=== PATIENT | female | born 1985 | race Caucasian/White ===

== ENCOUNTER 2016-11-15 21:19 | Emergency (ER) | payer BC, OTHER ==
[2016-11-15 18:19] LABS: BASOPHILS 0.2 %; BASOPHILS ABSOLUTE 0.02 10/3/uL (0.0-0.16); EOSINOPHILS 1.7 %; EOSINOPHILS ABSOLUTE 0.17 10/3/uL (0.0-0.53); ER CBC TAT 0 Hrs 05 Mins; HEMATOCRIT 41.1 % (36.0-48.0); HEMOGLOBIN 13.6 g/dL (12.0-16.0); IMMATURE GRANULOCYTES 0.2 %; IMMATURE GRANULOCYTES ABSOLUTE 0.02 10/3/uL (0.0-0.11); LYMPHOCYTES 21.8 %; LYMPHOCYTES ABSOLUTE 2.21 10/3/uL (0.67-4.30); MANUAL DIFF NO %; MEAN CORPUS HGB CONC 33.1 g/dL (32.0-36.0); MEAN CORPUSCULAR HEMOGLOB 29.2 pg (26.0-34.0); MEAN CORPUSCULAR VOLUME 88.2 fL (80-100); MEAN PLATELET VOLUME 10.7 fL (9.2-13.0); MONOCYTES 3.7 %; MONOCYTES ABSOLUTE 0.37 10/3/uL (0.21-1.20); NEUTROPHILS 72.4 %; NEUTROPHILS ABSOLUTE 7.33 10/3/uL (2.02-8.40); PLATELET COUNT 162 10/3/uL (150-400); RBC DISTRIBUTION WIDTH 13.7 % (12.0-16.0); RED CELL COUNT 4.66 10/6/uL (4.0-5.6); WHITE BLOOD CELLS 10.1 10/3/uL (4.5-10.5)
[2016-11-15 18:26] LABS: INTERNATIONAL NORMAL RATI 1.2 UNITS (-); PARTIAL THROMBO TIME 30.8 SEC (22.5-37.2); PROTIME (NOT ORD) 14.9 SEC (12.0-14.5)
[2016-11-15 18:40] LABS: BUN (BLOOD UREA NITROGEN) 13 MG/DL (6-23); CALCIUM, SERUM 8.7 MG/DL (8.5-10.4); CHEST PAIN PROFILE TAT 0 Hrs 26 Mins; CHLORIDE, SERUM 111 MMOL/L (96-112); CO2 (CARBON DIOXIDE) 24 MMOL/L (24-34); GFR AFRICAN AMERICAN 86 ML/MIN (>=60); GFR NON AFRICAN AMERICAN 74 ML/MIN (>=60); GLUCOSE, SERUM 125 MG/DL (60-99); POTASSIUM, SERUM 3.4 MMOL/L (3.5-5.3); SODIUM, SERUM 142 MMOL/L (135-148); TROPONIN I <0.02 NG/ML (<0.05)
[2016-11-15 19:47] LABS: ASCORBIC ACID (UR NOT ORDER) NEG (NEG); BILIRUBIN, URINE NEGATIVE (NEG); ER URINALYSIS TAT 0 Hrs 08 Mins; KETONE, URINE NEGATIVE (NEG); LEUKOCYTE ESTERASE(NOT OR LARGE (NEG); NITRITE (URINE) NEG (NEG); WBC (NOT ORDERED) (RFLEX) 132 (0-5)
[2016-11-15 20:37] LABS: ALBUMIN 3.3 G/DL (3.5-5.0); ALKALINE PHOSPHATASE 117 U/L (45-117); SGOT(AST) 9 U/L (5-40); SGPT(ALT) 18 U/L (5-65); TOTAL BILIRUBIN 0.4 MG/DL (0-1.2); TOTAL PROTEIN 6.8 G/DL (6.0-8.5); ULTRASENSITIVE TSH 0.576 MCIU/ML (0.358-3.740)
[2016-11-15 20:40] LABS: DIRECT BILIRUBIN < 0.1 MG/DL (0.0-0.4); INDIRECT BILIRUBIN(NOT ORDER) 0.3 MG/DL (0.1-0.9)
[~2016-11-15 21:19] MED LIST: CELEXA20 PO; DITRO5 PO; GEODON80 PO; KLONO1 PO; PRISTIQ100 MG PO; PRISTIQ50 MG PO; TOPAMAX200 MG PO; TRILEP300 PO; YAZ1 TAB PO; ZONEGRAN PO
== END 2016-11-15 21:48 | disposition home or self-care (01) ==
LOC: ER 21:19
PROVIDERS: Emergency Medicine; Nurse Practitioner
DX: N39.0 Urinary tract infection, site not specified (principal); E87.6 Hypokalemia; G89.29 Other chronic pain; Z88.6 Allergy status to analgesic agent; Z88.8 Allergy status to other drugs, medicaments and biological substances; Z79.899 Other long term (current) drug therapy
CPT/HCPCS: 71020; 80048; 80076; 81001; 83690; 83735; 83880; 84443; 84484; 84703; 85025; 85610; 85730; 87077; 87086; 87186; 93005; 96372; 99285; A9270-GY

== ENCOUNTER 2016-11-20 20:23 | Inpatient (IN) | payer BC, OTHER ==
--- NOTE | ~2016-11-20 | HP ---
History And Physical [place] [id number] [facility] [place]. [address] NAME: FIORDALIZA CALDERON : 83 STATUS : ADM IN PAT#: [id number] AGE: 31 ADM/REG DATE : 11/20/16 MR#: [id number] REPORT SERV DATE: 11/21/16 DICTATED BY: CARIE POSEY DATE: 11/20/16 REPORT STATUS : Draft TRANSCRIBED BY: MODL DATE: 11/20/16 DATE OF ADMISSION: 11/20/2016 IDENTIFYING DATA: A 31-year-old white female, patient of Dr. Tracy Ang; neurologist, Dr. Boogie; psychiatrist, Dr. Carie Steel. CHIEF COMPLAINT: Nausea, vomiting, passing out, and diarrhea. HISTORY OF PRESENT ILLNESS: This history of present illness is obtained by talking directly with the patient as well as reviewing [employer] and [employer] and also talking on the phone with her physician, Dr. Tracy Ang. The patient states she has had a month of nausea and vomiting. She states it happens at least every day. There is no red color in it, no black color in it. She also states she has had for the entire month diarrhea, that it comes primarily after meals, that is watery. There is no red or black color in the diarrhea. She states she has felt a little bit of red on her toilet paper once. She complains of generalized weakness. She also complains of fainting. She states she fainted several weeks ago, but then goes on to state that she was fully awake the whole time, so she then clarifies to state that she thinks she just was weak. She states that she has been to emergency rooms three times in the last week, once to [facility]. She only tells me they did not treat her very nicely and they gave her some Phenergan. She was here on 11/15/2016, and at that time, had a negative urine test and had chemistry profile that revealed alkaline phosphatase of 134, albumin of 3.3, but her alkaline phosphatase has been elevated somewhat in the past. Her lipase was normal at that time. CBC was normal at that time. Urinalysis was obtained, unfortunately, it was not a clean catch, it had 47 squamous epithelium, so the results of it were invalid; however, the ER reacted to the Marta hansen, and they had sent her home with some Ceftin and they called to tell her that she needed to switch over to Bactrim, which she did. She tells me she did not have dysuria or frequency. She did have some yeast vaginitis symptoms. She also was given some Diflucan at that time. She states she continued to have nausea and vomiting, so she went back to the emergency room and it appears that that was on 11/17/2016 with complaints of the similar abnormalities as well as abdominal pain. She then had a CT scan of the abdomen and pelvis, which was read by Radiology as being unremarkable. She, at that same time, had repeat comprehensive metabolic profile, and once again it was only remarkable for alkaline phosphatase elevation that was mild and albumin that was mildly low. Blood sugar has been mildly elevated in the 120s. She reports that she was at home early this morning, went to the kitchen, felt nauseated, felt lightheaded, and then passed out. She states that her mom heard her faint or hit the floor. They stated that she was out maybe 2 or 3 minutes, no seizure-like activity. The patient specifically states that the mother told her that they did not see any seizure-like activity. They checked her sugar, they checked her blood pressure, they were okay. She apparently awoke, was clear mentally. The report from the PCP was that the family called her and requested a direct admission for further evaluation and then the PCP called us to try to facilitate that. History And Physical [address] [place]. [address] NAME: FIORDALIZA CALDERON : [birth year] STATUS : ADM IN [facility]#: [id number] AGE: 31 ADM/REG DATE : 11/20/16 MR#: [id number] REPORT SERV DATE: 11/21/16 DICTATED BY: CARIE POSEY DATE: 11/20/16 REPORT STATUS : Draft TRANSCRIBED BY: MODLeyda DATE: 11/20/16 The patient states that she takes two Aleve every day for generalized body aches. She sometimes takes up to three. She has been doing that for longer than this last month. She has complained of abdominal pain. She localizes it in the entire mid abdomen, it is crampy in nature, intermittent. REVIEW OF SYSTEMS: On review of systems, she states she has been weak. She states she had a fever yesterday up to 101. She states Nexium gave her some chest pain recently, she quit it and she has not had any chest pain since that time. On the ER visit 11/15/2016, they did do a chest x-ray that was unremarkable other than for shallow inspiratory size. EKG done by the emergency room on 11/15/2016 at 1748 hours had revealed normal sinus rhythm, some very minimal ST- and T-wave abnormalities; otherwise, unremarkable. She denies sore throat, cough, melena, or rash. ALLERGIES: SHE CLAIMS ALLERGIES OR INTOLERANCE TO PHENYTOIN, TEGRETOL, ASPIRIN, AND ZOFRAN. PAST MEDICAL HISTORY: She denies any history of diabetes, heart disease, stroke, peptic ulcer or liver disease, chronic kidney disease or cancer. She has had epilepsy since age 9. She has a vagal nerve stimulator. Only change in her multiple seizure medicines was her Klonopin, was reduced in half about a month and a half ago. She has obstructive sleep apnea for which she wears CPAP. She has a chart history of hyperthyroidism, but I could not find anything to corroborate that. On 11/15/2016, her TSH was normal at 0.576. She states she had childhood asthma. She has a history of depression and anxiety and psychosis with hallucinations for which she sees Psychiatry and is on Geodon. She has morbid obesity. She used to have migraine headaches. HOME MEDICATIONS: BuSpar 15 mg b.i.d.; Klonopin 0.5 mg b.i.d.; Diflucan 150 mg was given to her the other day after the ER visit; Aleve [id number] two or three a day; Trileptal 1200 mg b.i.d.; Ditropan XL 5 mg daily; Pyridium 200 mg twice a day p.r.n. urinary discomfort, started by the ER; Phenergan 25 mg b.i.d., reportedly started by [facility]; Topamax 200 mg b.i.d.; Bactrim DS p.o. b.i.d. started 11/18/2016 by ER; Geodon 160 mg at bedtime; and Zonegran 200 mg at bedtime. PAST SURGICAL HISTORY: She has had a vagus nerve stimulator in 2004 and in 2010, and in 2015, she had a generator change. 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 She has had , benign right cheek tumor removed back in the s, tonsillectomy, and cholecystectomy. SOCIAL HISTORY: She denies use of tobacco. She states she drinks alcohol socially. She used to work as a sales associate cashier, but she states she quit because of the current nausea, vomiting, and diarrhea problems. She lives with her parents. FAMILY HISTORY: Mother reportedly is healthy. Father with sleep apnea, diabetes, and had a kidney transplant. Siblings with kidney stone problems. DIAGNOSTIC DATA: The most recent chemistries were on 11/17/2016 sodium 143, potassium 3.3, History And Physical [address] [address] NAME: FIORDALIZA CALDERON : [birth year] STATUS : ADM IN [facility]#: [id number] AGE: 31 ADM/REG DATE : 11/20/16 MR#: [id number] REPORT SERV DATE: 11/21/16 DICTATED BY: CARIE POSEY DATE: 11/20/16 REPORT STATUS : Draft TRANSCRIBED BY: KELLEE DATE: 11/20/16 chloride 111, CO2 23, BUN 14, creatinine 0.87, glucose 123, calcium was 7.9, and her albumin was 3.3 with an alkaline phosphatase of 134, lipase of 154. Most recent CBC on 11/17/2016; white count 10.4, hemoglobin 12.9, and platelets are 166,000. CT scan of the abdomen and pelvis read by radiologist on 11/17/2016 was unremarkable. Chest x-ray of 11/15/2016 with shallow inspiration, and otherwise, unremarkable findings. EKG done on 11/15/2016 at 1748 hours once again as I mentioned above showed sinus rhythm and some minor inferior ST- and T-wave abnormalities, otherwise, unremarkable to my interpretation. PHYSICAL EXAMINATION: VITAL SIGNS: Temp 98.4, pulse 76, respirations 16, blood pressure is 107/70, and O2 saturation is 100% on room air. GENERAL: A well-developed, obese young female, who appears at the moment in no acute distress, seated on the gurney in the CDU. HEENT: Head is atraumatic. Pupils are equal, round, and reactive to light. Extraocular motions are intact. No scleral icterus noted. Ears, externally unremarkable with no inflammatory changes and normal hearing bilaterally. Nose, noninflamed externally. Septum midline. Nares patent. Mouth, moist. Good gag. No redness of the throat, gums, or lips. NECK: Supple, but obese. No lymph node or thyroid enlargement noted. Carotids have good pulses. No bruits. LUNGS: Shallow inspiratory size, but they are clear with good air flow. No wheezes, no rhonchi, anterior and posteriorly and normal respiratory effort. HEART: Regular rate and rhythm without murmur, gallop, click, or rub. ABDOMEN: Extremely obese. Bowel sounds are positive. It is soft and nondistended. When I palpated her abdomen with my stethoscope, I did not notice any reaction indicating pain. When I stopped using my stethoscope and did palpation with my hand, she reacted as if in pain with palpation over most of the mid abdomen. No bruits. No organomegaly. No masses noted. EXTREMITIES: Warm and good pulses. No clubbing. No cyanosis. No edema. No actively inflamed skin or joints. NEUROLOGIC: Alert, oriented, and cooperative. Her motor strength, when I asked her to do hand stitcher standard machine, initially, she squeezed tightly, then she relaxed to very slight squeeze and told me she could not squeeze any harder at all. Arm strength and leg strength appears normal and symmetrical though. No Babinski, no clonus noted. Cranial nerves II through XII grossly normal. ASSESSMENT: 1. A month of nausea, vomiting, and post meal diarrhea with negative imaging and her chemistries and physical examination. Differential diagnosis:. a. Peptic ulcer disease in this patient who takes anti-inflammatories. b. Irritable bowel. c. Conversion disorder. d. Infectious etiology. 2. Syncopal episode early this morning associated with nausea, could be vasovagal or orthostatic. 3. I doubt that she actually had a urinary tract infection because her symptoms were not History And Physical [address] [address] NAME: FIORDALIZA CALDERON : [birth year] STATUS : ADM IN [facility]#: [id number] AGE: 31 ADM/REG DATE : 11/20/16 MR#: [id number] REPORT SERV DATE: 11/21/16 DICTATED BY: CARIE POSEY DATE: 11/20/16 REPORT STATUS : Draft TRANSCRIBED BY: KELLEE DATE: 11/20/16 typical of urinary tract infection and the urine was not a clean catch. 4. Morbid obesity. 5. Epilepsy since age 9. 6. History of depression with psychoses followed by Psychiatry. 7. Obstructive sleep apnea, on CPAP. 8. See past medical history. PLAN: 1. Observation status on telemetry. We will check orthostatic vitals. We have ordered stool specimens for culture, ova and parasites, C. diff, leukocytes. 2. We will try to get a true clean catch urinalysis. 3. We will ask GI to see her to consider whether they think EGD and/or colonoscopy would be warranted. STEPHANIE/KELLEE Carie Posey M.D. / [id number] CC: Everett Davidson Jr, MD Matthew Kodsi, M.D., PhD. Tracy Ang M.D.
--- NOTE | ~2016-11-20 | DS ---
Discharge Summary [facility] [address] [facility] [place]. [address] NAME: FIORDALIZA CALDERON : [birth year] STATUS : DIS IN PAT#: [id number] AGE: 31 ADM/REG DATE : 11/20/16 MR#: [id number] REPORT SERV DATE: 11/25/16 DICTATED BY: JON URIAS DATE: 11/24/16 REPORT STATUS : Draft TRANSCRIBED BY: MODL DATE: 11/24/16 ADMISSION DATE: 11/20/2016 DISCHARGE DATE: 11/24/2016 DISCHARGE DIAGNOSES: 1. Intractable nausea and vomiting due to gastroparesis. 2. Newly diagnosed gastroparesis. 3. Vertigo. 4. Positive UA without evidence of urinary tract infection. 5. Morbid obesity. 6. Epilepsy, status post vagal stimulator implantation. 7. History of depression with psychosis followed by Psychiatry. 8. Obstructive sleep apnea. PROCEDURES: 1. EGD performed 11/22/2016 revealed residual food in the stomach. 2. Gastric emptying study did reveal gastroparesis. HOSPITAL COURSE: This is a 31-year-old lady with morbid obesity, history of seizures, who has a vagal nerve stimulator, who was admitted to the hospital with intractable nausea, vomiting, and diarrhea. For details, please refer to excellent H and P by Dr. Wili Posey. In summary, the patient was admitted and was given supportive care. The patient actually improved significantly symptomatically with supportive care alone that included IV fluids, clear liquid diet, and antiemetics. The patient was seen by GI due to unexpected weight loss and underwent an EGD. The EGD was largely benign, but it did reveal quite a bit of food material in the stomach. Gastroparesis was suspected and the patient underwent a gastric emptying study, which was positive for gastroparesis. The patient was thus instructed to have frequent small portion meals instead of bolus feeding. The patient will also be tried on an azithromycin to stimulate gastric motility. Also on admission, the patient was complaining of syncopal episodes, however, patient's telemetry remained normal, and throughout the hospital stay, it was more evident that the patient was suffering from vertigo than syncopal episodes. The patient was given a trial of Antivert to which patient had fairly good response. Throughout the entire hospital stay, the patient remained hemodynamically stable and all of her labs remained completely normal. The patient is now being discharged home with close outpatient followup instructions. DISPOSITION: Home. MEDICATIONS: 1. Zonegran 200 mg p.o. at bedtime. 2. Pyridium 200 mg p.o. b.i.d. p.r.n. 3. Topamax 200 mg p.o. b.i.d. 4. Trileptal 1200 mg p.o. b.i.d. 5. Geodon 160 mg p.o. at bedtime. 6. Phenergan 25 mg p.o. b.i.d. p.r.n. 7. Klonopin 0.5 mg p.o. b.i.d. Discharge Summary [address] [address] NAME: FIORDALIZA CALDERON : [birth year] STATUS : DIS IN PAT#: [id number] AGE: 31 ADM/REG DATE : 11/20/16 MR#: [id number] REPORT SERV DATE: 11/25/16 DICTATED BY: JON URIAS DATE: 11/24/16 REPORT STATUS : Draft TRANSCRIBED BY: KELLEE DATE: 11/24/16 8. Ditropan 5 mg p.o. q.a.m. 9. Aleve 440 to 660 mg p.o. daily p.r.n. 10.BuSpar 15 mg p.o. t.i.d. p.r.n. 11.Questran one packet p.o. daily. 12.Bentyl 10 mg p.o. before meals and at bedtime. 13.Pepcid 20 mg p.o. b.i.d. 14.Antivert 25 mg p.o. t.i.d. p.r.n. 15.Zithromax 500 mg p.o. daily. FOLLOWUP: 1. Please follow up with PCP in the next one to two weeks. 2. Please follow up with GI as instructed. TIME SPENT: Total of 25 minutes spent in coordinating this patient's discharge today. MULUGETA/KELLEE Jon Urias MD / [id number] CC: MD Tracy Self M.D.
--- NOTE | ~2016-11-20 | CN ---
Consultation Report [facility] [address] [place]. [address] NAME: FIORDALIZA CLADERON : [birth year] STATUS : ADM IN PAT#: [id number] AGE: 31 ADM/REG DATE : 11/20/16 MR#: [id number] REPORT SERV DATE: 11/21/16 DICTATED BY: LARS ALEJO DATE: 11/21/16 REPORT STATUS : Draft TRANSCRIBED BY: MODL DATE: 11/21/16 GI CONSULTATION DATE OF CONSULTATION: 11/21/2016 HISTORY OF PRESENT ILLNESS: The patient is a 31-year-old white female whom I am consulted for abdominal pain, nausea, vomiting, and diarrhea. The patient has a one-month history of intermittent crampy, anthony-abdominal pain. Most commonly associated with eating. She also has nausea with some vomiting and diarrhea immediately after eating. She has lost 10 pounds of weight. She complains of cold sweats at night, but has had no documented fever or chills. No hematochezia. No mouth ulcers or rashes. She denies any well water drinking, has not been on any recent antibiotics or travel. The patient had a CT scan, which was negative. Stool studies are presently pending. PAST MEDICAL HISTORY: 1. Patient with epilepsy with the vagal nerve stimulator that was placed in 2004. The patient had a cholecystectomy five years ago as well as . 2. The patient has anxiety and depression. MEDICATIONS: Reviewed. ALLERGIES: THE PATIENT IS ALLERGIC TO DILANTIN, TEGRETOL, ZOFRAN, AND ASPIRIN. SOCIAL HISTORY: The patient has not used any tobacco and rarely drinks alcohol. PHYSICAL EXAMINATION: GENERAL: Patient is an obese, white female, in no acute distress. HEENT: Mucous membranes are normal. LUNGS: Clear. CARDIOVASCULAR: Regular rate and rhythm. ABDOMEN: Obese. There is moderate anthony-abdominal pain to palpation. No pili masses appreciated. LABORATORY: Reviewed. Of note, her white count is 10,400, hemoglobin 12.9, BUN 14, creatinine 0.87, potassium is low at 3.3. ASSESSMENT: 1. The patient with one month of crampy abdominal pain, nausea, vomiting, diarrhea, and weight loss. Certainly, she has some issue of postcholecystectomy diarrhea, but certainly need to rule out a peptic ulcer disease and inflammatory bowel disease and infection. Consider irritable bowel syndrome. Doubt this represents Jefferson Davis's disease. Consultation Report [facility] [address] [place]. [address] NAME: FIORDALIZA CALDERON : [birth year] STATUS : ADM IN PAT#: [id number] AGE: 31 ADM/REG DATE : 11/20/16 MR#: [id number] REPORT SERV DATE: 11/21/16 DICTATED BY: LARS ALEJO DATE: 11/21/16 REPORT STATUS : Draft TRANSCRIBED BY: MODL DATE: 11/21/16 2. Other medical problems as above. RECOMMENDATION: 1. Agree with stool studies presently ordered. 2. Scheduled EGD for in the morning. 3. Give the patient a trial of metronidazole, Questran, and Bentyl at the present time. 4. Consider colon and small-bowel studies pending results of above. LS/BEAL Lars Alejo M.D. / [id number] CC: MD Tracy Self M.D.
--- NOTE | ~2016-11-20 | EGD ---
EGD REPORT [facility] [address] [place] [address] NAME: MARYSOL CALDERON : 83 STATUS : ADM Yen PAT#: [id number] AGE: 31 ADM/REG DATE : 11/20/16 MR#: [id number] REPORT SERV DATE: 11/22/16 DICTATED BY: EVERETT BUTLER DATE: 11/22/16 REPORT STATUS : Draft TRANSCRIBED BY: [facility] DATE: 11/22/16 Endoscopy Center Patient Name: Marysol Calderon Date of : 1985 Attending MD: EVERETT BUTLER MD Procedure Date No Time: 11/22/2016 Procedure: Upper GI endoscopy Indications: Diarrhea, Nausea with vomiting Referring MD: DAVION OROZCO Medicines: Monitored Anesthesia Care Complications: No immediate complications. Estimated blood loss: Minimal. Procedure: Pre-Anesthesia Assessment: - ASA Grade Assessment: III - A patient with severe systemic disease. After obtaining informed consent, the endoscope was passed under direct vision. Throughout the procedure, the patient's blood pressure, pulse, and oxygen saturations were monitored continuously. The GIF [id number] was introduced through the mouth, and advanced to the third part of duodenum. The upper GI endoscopy was accomplished without difficulty. The patient tolerated the procedure. Findings: The examined esophagus was normal. A large amount of food (residue) was found in the gastric fundus. Diffuse moderately congested mucosa without active bleeding and with no stigmata of bleeding was found in the second part of the duodenum. Biopsies were taken with a cold forceps for histology. Estimated blood loss was minimal. The exam was otherwise without abnormality. Impression: - A large amount of food (residue) in the stomach. - Congested duodenal mucosa. Biopsied. - The examination was otherwise normal. Recommendation: - [facility] patient [facility]. - Use Protonix (pantoprazole) 40 mg PO daily. - Gastric emptying study for concern of gastroparesis - Still awaiting stool studies - Monitor symptoms for now Procedure Code(s): --- Professional --- 09911, Esophagogastroduodenoscopy, flexible, transoral; EGD REPORT [address] [place]. [address] NAME: MARYSOL CALDERON : 83 STATUS : ADM Yen PAT#: [id number] AGE: 31 ADM/REG DATE : 11/20/16 MR#: [id number] REPORT SERV DATE: 11/22/16 DICTATED BY: EVERETT BUTLER DATE: 11/22/16 REPORT STATUS : Draft TRANSCRIBED BY: [employer] DATE: 11/22/16 with biopsy, single or multiple Diagnosis Code(s): --- Professional --- K31.9, Disease of stomach and duodenum, unspecified R19.7, Diarrhea, unspecified R11.2, Nausea with vomiting, unspecified CPT copyright 2013 [employer]. All rights reserved. The codes documented in this report are preliminary and upon electronic communications technician review may be revised to meet current compliance requirements. Everett Butler MD EVERETT BUTLER MD 11/22/2016 7:53 AM This report has been signed electronically. Number of Addenda: 0 Note Initiated On: 11/22/2016 7:05 AM Scope Withdrawal Time 0 hours 0 minutes [address] [place] [id number]
[2016-11-20] MEDS ORDERED: ZONEGRAN PO (20:59)
[2016-11-20] MEDS ORDERED: PYR200 PO (21:00)
[2016-11-20] MEDS ORDERED: TOPAMAX200 MG PO (21:00)
[2016-11-20] MEDS ORDERED: GEODON80 PO (21:01)
[2016-11-20] MEDS ORDERED: TRILEPTAL600 MG PO (21:01)
[2016-11-20] MEDS ORDERED: PR25 PO (21:02)
[2016-11-20] MEDS ORDERED: BUSPAR15 M1 PO (21:02)
[2016-11-20] MEDS ORDERED: DITROXL5 PO (21:03)
[2016-11-20] MEDS ORDERED: KLONO5 PO (21:03)
[2016-11-20] MEDS ORDERED: BACDS PO (21:04)
[2016-11-20] MEDS ORDERED: ALEVE220 MG PO (21:06)
[2016-11-20] MEDS ORDERED: FLUCON150 PO (21:11)
[2016-11-21 00:15] LABS: HEMOGLOBIN 15.2 g/dL (12.0-16.0); MEAN CORPUSCULAR HEMOGLOB 29.9 pg (26.0-34.0); MEAN PLATELET VOLUME 11.2 fL (9.2-13.0); PLATELET COUNT 174 10/3/uL (150-400); RBC DISTRIBUTION WIDTH 13.8 % (12.0-16.0); RED CELL COUNT 5.09 10/6/uL (4.0-5.6); WHITE BLOOD CELLS 8.7 10/3/uL (4.5-10.5)
[2016-11-21 00:22] LABS: HEMATOCRIT 46.1 % (36.0-48.0); MANUAL DIFF YES %; MEAN CORPUSCULAR VOLUME 90.6 fL (80-100)
[2016-11-21 00:27] LABS: INTERNATIONAL NORMAL RATI 1.1 UNITS (-); PARTIAL THROMBO TIME 29.9 SEC (22.5-37.2); PROTIME (NOT ORD) 13.8 SEC (12.0-14.5)
[2016-11-21 00:33] LABS: A/G RATIO 0.9 (0.7-1.9); ALBUMIN 3.5 G/DL (3.5-5.0); ALKALINE PHOSPHATASE 129 U/L (45-117); BUN (BLOOD UREA NITROGEN) 14 MG/DL (6-23); CALCIUM, SERUM 8.4 MG/DL (8.5-10.4); CHLORIDE, SERUM 112 MMOL/L (96-112); CO2 (CARBON DIOXIDE) 24 MMOL/L (24-34); CREATININE 1.05 MG/DL (0.55-1.02); GFR AFRICAN AMERICAN 81 ML/MIN (>=60); GFR NON AFRICAN AMERICAN 70 ML/MIN (>=60); GLOBULIN 3.9 G/DL (2.5-4.1); POTASSIUM, SERUM 3.9 MMOL/L (3.5-5.3); SGOT(AST) 15 U/L (5-40); SGPT(ALT) 28 U/L (5-65); SODIUM, SERUM 141 MMOL/L (135-148); TOTAL PROTEIN 7.4 G/DL (6.0-8.5); TROPONIN I <0.02 NG/ML (<0.05)
[2016-11-21 00:34] LABS: GLUCOSE, SERUM 75 MG/DL (60-99)
[2016-11-21 00:52] LABS: BASOPHILS 2 %; BASOPHILS ABSOLUTE (CALC) 0.17 10/3/uL (0.0-0.16); LYMPHOCYTES 27 %; LYMPHOCYTES ABSOLUTE (CALC) 2.35 10/3/uL (0.67-4.30); MONOCYTES 5 %; MONOCYTES ABSOLUTE (CALC) 0.44 10/3/uL (0.21-1.20); NEUTROPHILS ABSOLUTE (CALC) 5.74 10/3/uL (2.02-8.40); SEGMENTED NEUTROPHIL (0) 66 %; TOTAL NUCLEATED CELLS 100
[2016-11-21 00:53] LABS: PLATELET ESTIMATE ADQ (ADEQUATE); RBC MORPHOLOGY NORM (NORMAL)
[2016-11-21 04:18] LABS: BASOPHILS 0.4 %; BASOPHILS ABSOLUTE 0.04 10/3/uL (0.0-0.16); EOSINOPHILS 2.7 %; EOSINOPHILS ABSOLUTE 0.27 10/3/uL (0.0-0.53); HEMATOCRIT 43.4 % (36.0-48.0); HEMOGLOBIN 14.4 g/dL (12.0-16.0); IMMATURE GRANULOCYTES 0.5 %; IMMATURE GRANULOCYTES ABSOLUTE 0.05 10/3/uL (0.0-0.11); LYMPHOCYTES ABSOLUTE 3.83 10/3/uL (0.67-4.30); MEAN CORPUS HGB CONC 33.2 g/dL (32.0-36.0); MEAN CORPUSCULAR HEMOGLOB 29.2 pg (26.0-34.0); MEAN PLATELET VOLUME 10.5 fL (9.2-13.0); MONOCYTES 5.3 %; MONOCYTES ABSOLUTE 0.53 10/3/uL (0.21-1.20); NEUTROPHILS 53.1 %; NEUTROPHILS ABSOLUTE 5.37 10/3/uL (2.02-8.40); PLATELET COUNT 199 10/3/uL (150-400); RED CELL COUNT 4.93 10/6/uL (4.0-5.6); WHITE BLOOD CELLS 10.1 10/3/uL (4.5-10.5)
[2016-11-21 04:21] LABS: MANUAL DIFF NO %
[2016-11-21 04:23] LABS: ASCORBIC ACID (UR NOT ORDER) NEG (NEG); BILIRUBIN, URINE NEGATIVE (NEG); KETONE, URINE NEGATIVE (NEG); LEUKOCYTE ESTERASE(NOT OR NEG (NEG); WBC (NOT ORDERED) (RFLEX) 1 (0-5)
[2016-11-21 04:30] LABS: BUN (BLOOD UREA NITROGEN) 14 MG/DL (6-23); CALCIUM, SERUM 8.1 MG/DL (8.5-10.4); CHLORIDE, SERUM 111 MMOL/L (96-112); CO2 (CARBON DIOXIDE) 22 MMOL/L (24-34); CREATININE 0.95 MG/DL (0.55-1.02); GFR AFRICAN AMERICAN 92 ML/MIN (>=60); GFR NON AFRICAN AMERICAN 79 ML/MIN (>=60); GLUCOSE, SERUM 89 MG/DL (60-99); POTASSIUM, SERUM 3.8 MMOL/L (3.5-5.3); SODIUM, SERUM 144 MMOL/L (135-148)
[2016-11-21 08:11] LABS: GLYCOHEMOGLOBIN (HbA1c) 5.3 % (4.7-6.1)
[2016-11-21 08:17] LABS: B NATRIURETIC PEPTIDE (BNP) 20.9 PG/ML (< 100.0)
[2016-11-21 09:53] LABS: ASCORBIC ACID (UR NOT ORDER) NEG (NEG); BILIRUBIN, URINE NEGATIVE (NEG); KETONE, URINE NEGATIVE (NEG); LEUKOCYTE ESTERASE(NOT OR SMALL (NEG); WBC (NOT ORDERED) (RFLEX) 3 (0-5)
[2016-11-22 06:41] LABS: BASOPHILS 0.2 %; BASOPHILS ABSOLUTE 0.02 10/3/uL (0.0-0.16); EOSINOPHILS 2.8 %; EOSINOPHILS ABSOLUTE 0.23 10/3/uL (0.0-0.53); HEMATOCRIT 40.8 % (36.0-48.0); HEMOGLOBIN 13.4 g/dL (12.0-16.0); IMMATURE GRANULOCYTES 0.4 %; IMMATURE GRANULOCYTES ABSOLUTE 0.03 10/3/uL (0.0-0.11); LYMPHOCYTES 38.9 %; MEAN CORPUS HGB CONC 32.8 g/dL (32.0-36.0); MEAN CORPUSCULAR HEMOGLOB 29.1 pg (26.0-34.0); MEAN CORPUSCULAR VOLUME 88.7 fL (80-100); MEAN PLATELET VOLUME 10.7 fL (9.2-13.0); MONOCYTES 5.7 %; MONOCYTES ABSOLUTE 0.47 10/3/uL (0.21-1.20); NEUTROPHILS ABSOLUTE 4.28 10/3/uL (2.02-8.40); PLATELET COUNT 204 10/3/uL (150-400); RBC DISTRIBUTION WIDTH 13.8 % (12.0-16.0); WHITE BLOOD CELLS 8.2 10/3/uL (4.5-10.5)
[2016-11-22 06:43] LABS: MANUAL DIFF NO %
[2016-11-22 06:47] LABS: A/G RATIO 0.9 (0.7-1.9); ALBUMIN 3.1 G/DL (3.5-5.0); ALKALINE PHOSPHATASE 133 U/L (45-117); BUN (BLOOD UREA NITROGEN) 14 MG/DL (6-23); CALCIUM, SERUM 8.2 MG/DL (8.5-10.4); CHLORIDE, SERUM 111 MMOL/L (96-112); CO2 (CARBON DIOXIDE) 23 MMOL/L (24-34); CREATININE 0.92 MG/DL (0.55-1.02); GFR AFRICAN AMERICAN 95 ML/MIN (>=60); GFR NON AFRICAN AMERICAN 82 ML/MIN (>=60); GLOBULIN 3.5 G/DL (2.5-4.1); POTASSIUM, SERUM 3.9 MMOL/L (3.5-5.3); SGOT(AST) 11 U/L (5-40); SGPT(ALT) 23 U/L (5-65); SODIUM, SERUM 140 MMOL/L (135-148); TOTAL PROTEIN 6.6 G/DL (6.0-8.5)
[2016-11-22 06:52] LABS: GLUCOSE, SERUM 110 MG/DL (60-99); TOTAL BILIRUBIN 0.3 MG/DL (0-1.2)
[2016-11-24 06:03] LABS: BASOPHILS 0.4 %; BASOPHILS ABSOLUTE 0.03 10/3/uL (0.0-0.16); EOSINOPHILS 2.2 %; EOSINOPHILS ABSOLUTE 0.17 10/3/uL (0.0-0.53); HEMATOCRIT 38.5 % (36.0-48.0); HEMOGLOBIN 12.8 g/dL (12.0-16.0); IMMATURE GRANULOCYTES 0.4 %; IMMATURE GRANULOCYTES ABSOLUTE 0.03 10/3/uL (0.0-0.11); LYMPHOCYTES 44.3 %; LYMPHOCYTES ABSOLUTE 3.41 10/3/uL (0.67-4.30); MEAN CORPUS HGB CONC 33.2 g/dL (32.0-36.0); MEAN CORPUSCULAR HEMOGLOB 28.8 pg (26.0-34.0); MEAN CORPUSCULAR VOLUME 86.7 fL (80-100); MONOCYTES 5.2 %; NEUTROPHILS 47.5 %; NEUTROPHILS ABSOLUTE 3.65 10/3/uL (2.02-8.40); PLATELET COUNT 184 10/3/uL (150-400); RBC DISTRIBUTION WIDTH 13.8 % (12.0-16.0); RED CELL COUNT 4.44 10/6/uL (4.0-5.6); WHITE BLOOD CELLS 7.7 10/3/uL (4.5-10.5)
[2016-11-24 06:04] LABS: MANUAL DIFF NO %
[2016-11-24 06:11] LABS: BUN (BLOOD UREA NITROGEN) 13 MG/DL (6-23); CALCIUM, SERUM 8.4 MG/DL (8.5-10.4); CHLORIDE, SERUM 109 MMOL/L (96-112); CO2 (CARBON DIOXIDE) 22 MMOL/L (24-34); CREATININE 0.92 MG/DL (0.55-1.02); GFR AFRICAN AMERICAN 95 ML/MIN (>=60); GFR NON AFRICAN AMERICAN 82 ML/MIN (>=60); GLUCOSE, SERUM 103 MG/DL (60-99); SODIUM, SERUM 139 MMOL/L (135-148)
[2016-11-24] MEDS ORDERED: BUSPAR15 M1 PO (11:46)
[2016-11-24] MEDS ORDERED: QUESLITE PO (11:48)
[2016-11-24] MEDS ORDERED: BENTYL10 (11:49)
[2016-11-24] MEDS ORDERED: PEP20 PO (11:49)
== END 2016-11-24 15:50 | disposition home or self-care (01) | DRG 392 ==
LOC: CDU1 20:23 → CDU2 20:55 → 7NO 11-21 15:55
PROVIDERS: Hospitalist; Internal Medicine; Internal Medicine Gastroenterology; Nurse Practitioner Family
PROC: 0DB98ZX Excision of Duodenum, Via Natural or Artificial Opening Endoscopic, Diagnostic (ICD-10-PCS; principal; 2016-11-22 07:00)
DX: K31.84 Gastroparesis (principal); Z68.43 Body mass index [BMI] 50.0-59.9, adult; E66.01 Morbid (severe) obesity due to excess calories; R11.2 Nausea with vomiting, unspecified; G40.909 Epilepsy, unspecified, not intractable, without status epilepticus; Z90.49 Acquired absence of other specified parts of digestive tract; G47.33 Obstructive sleep apnea (adult) (pediatric); F32.9 Major depressive disorder, single episode, unspecified; R42 Dizziness and giddiness; F41.9 Anxiety disorder, unspecified; Z88.6 Allergy status to analgesic agent; Z88.8 Allergy status to other drugs, medicaments and biological substances; Z79.899 Other long term (current) drug therapy
CPT/HCPCS: 74176; 78264; 80048; 80053; 81001; 82533; 83036; 83690; 83880; 84484; 84703; 85025; 85610; 85730; 87086; 88305; 93005; 96374; 96375; 99285; A9270-GY; A9541; J1200; J2250; J2550

== ENCOUNTER 2016-12-12 23:59 | Emergency (ER) | payer BC, OTHER ==
[2016-12-12 23:57] LABS: BASOPHILS 0.3 %; BASOPHILS ABSOLUTE 0.02 10/3/uL (0.0-0.16); EOSINOPHILS ABSOLUTE 0.12 10/3/uL (0.0-0.53); HEMATOCRIT 41.9 % (36.0-48.0); HEMOGLOBIN 13.9 g/dL (12.0-16.0); IMMATURE GRANULOCYTES 0.2 %; IMMATURE GRANULOCYTES ABSOLUTE 0.01 10/3/uL (0.0-0.11); LYMPHOCYTES 34.3 %; LYMPHOCYTES ABSOLUTE 2.04 10/3/uL (0.67-4.30); MEAN CORPUS HGB CONC 33.2 g/dL (32.0-36.0); MEAN CORPUSCULAR HEMOGLOB 29.7 pg (26.0-34.0); MEAN PLATELET VOLUME 10.3 fL (9.2-13.0); MONOCYTES 6.6 %; MONOCYTES ABSOLUTE 0.39 10/3/uL (0.21-1.20); NEUTROPHILS 56.6 %; NEUTROPHILS ABSOLUTE 3.37 10/3/uL (2.02-8.40); PLATELET COUNT 158 10/3/uL (150-400); RBC DISTRIBUTION WIDTH 13.8 % (12.0-16.0); RED CELL COUNT 4.68 10/6/uL (4.0-5.6)
[2016-12-12 23:58] LABS: MANUAL DIFF NO %; MEAN CORPUSCULAR VOLUME 89.5 fL (80-100)
[~2016-12-12 23:59] MED LIST changes: +ALEVE220 MG PO; +BACDS PO; +BENTYL10; +BUSPAR15 M1 PO; +DITROXL5 PO; +FLUCON150 PO; +KLONO5 PO; +PEP20 PO; +PR25 PO; +PYR200 PO; +QUESLITE PO; +TRILEPTAL600 MG PO
[2016-12-13 00:13] LABS: A/G RATIO 1.1 (0.7-1.9); ALBUMIN 3.7 G/DL (3.5-5.0); ALKALINE PHOSPHATASE 123 U/L (45-117); BUN (BLOOD UREA NITROGEN) 12 MG/DL (6-23); CALCIUM, SERUM 8.4 MG/DL (8.5-10.4); CHLORIDE, SERUM 111 MMOL/L (96-112); CO2 (CARBON DIOXIDE) 26 MMOL/L (24-34); CREATININE 1.04 MG/DL (0.55-1.02); GFR AFRICAN AMERICAN 82 ML/MIN (>=60); GFR NON AFRICAN AMERICAN 71 ML/MIN (>=60); GLOBULIN 3.5 G/DL (2.5-4.1); POTASSIUM, SERUM 3.2 MMOL/L (3.5-5.3); SGOT(AST) 18 U/L (5-40); SGPT(ALT) 31 U/L (5-65); SODIUM, SERUM 143 MMOL/L (135-148); TOTAL BILIRUBIN 0.4 MG/DL (0-1.2); TOTAL PROTEIN 7.2 G/DL (6.0-8.5)
[2016-12-13 00:14] LABS: GLUCOSE, SERUM 78 MG/DL (60-99)
[2016-12-13 05:09] LABS: ASCORBIC ACID (UR NOT ORDER) NEG (NEG); BILIRUBIN, URINE NEGATIVE (NEG); ER URINALYSIS TAT 0 Hrs 00 Mins; KETONE, URINE NEGATIVE (NEG); LEUKOCYTE ESTERASE(NOT OR NEG (NEG); NITRITE (URINE) NEG (NEG); WBC (NOT ORDERED) (RFLEX) 3 (0-5)
== END 2016-12-13 05:53 | disposition home or self-care (01) ==
LOC: ER 23:59
PROVIDERS: Emergency Medicine
DX: K31.84 Gastroparesis (principal); G47.30 Sleep apnea, unspecified; F32.9 Major depressive disorder, single episode, unspecified; F41.9 Anxiety disorder, unspecified; Z88.6 Allergy status to analgesic agent; Z88.8 Allergy status to other drugs, medicaments and biological substances; Z79.899 Other long term (current) drug therapy
CPT/HCPCS: 74022; 80053; 81001; 83690; 85025; 96365; 96375; 99284; A9270-GY; J0456; J1200; J2550